=== PATIENT | male | born 1955 | race Caucasian/White ===

== ENCOUNTER 2020-02-20 14:32 | Outpatient (CLI) | payer OTHER, SELFPAY ==
[2020-02-20 16:09] LABS: Hematocrit 42.1 % (42.0-52.0); Hemoglobin 14.5 g/dL (14.0-18.0); Mean Corpuscular HGB Conc 34.4 g/dl (32-36); Mean Corpuscular Hemoglobin 30.8 pg (26-34); Mean Corpuscular Volume 89.4 fl (80-100); Mean Platelet Volume 10.3 fl (7.4-10.4); Platelet Count Result 253 k/mm3 (150-375); Red Blood Count 4.71 M/mm3 (4.6-6.20); Red Cell Distribution Width 13.7 % (11.5-14.5); White Blood Count 5.9 K/mm3 (4.5-10.0)
[2020-02-20 16:15] LABS: Hemoglobin A1C 5.7 % (<5.7)
[2020-02-20 16:18] LABS: Alanine Aminotransferase 39 U/L (4-50); Albumin Level 4.2 g/dL (3.5-5.1); Alkaline Phosphatase 74 U/L (38-126); Aspartate Amino Transferase 35 U/L (17-59); Bilirubin,Total 0.7 mg/dL (0.2-1.3); Blood Urea Nitrogen 14 mg/dL (9-20); Calcium 8.8 mg/dL (8.4-10.2); Carbon Dioxide 24 mmol/L (22-30); Chloride 103 mmol/L (98-107); Cholesterol 128 mg/dL (0-200); Estimated Glomerular Filt Rate > 60; Glucose 88 mg/dL (75-110); HDL Direct 43 mg/dL; Potassium 3.8 mmol/L (3.4-5.0); Sodium 134 mmol/L (137-145); Triglycerides 92 mg/dL (<150)
[2020-02-20 16:29] LABS: LDL Cholesterol Direct 64 mg/dL
[2020-02-20 16:35] LABS: Creatinine Urine 185.4 mg/dL
[2020-02-20 16:40] LABS: MALB Creatinine Ratio < 3.2 mg/g (0-30); Microalbumin Urine Random < 6.0 mg/L (0-16.7)
== END 2020-02-20 14:33 | disposition home or self-care (01) ==
LOC: ANHLAB 14:47
PROVIDERS: PCP Internal Medicine; Visit Provider Internal Medicine
DX: I10 Essential (primary) hypertension (principal); E78.5 Hyperlipidemia, unspecified; R73.01 Impaired fasting glucose
CPT/HCPCS: 36415; 80053; 80061; 82043; 83036; 84443; 85027

== ENCOUNTER 2020-09-14 09:23 | Outpatient (CLI) | payer OTHER, SELFPAY ==
--- NOTE | ~2020-09-14 | CT_ITS ---
EXAMINATION: CT lung screening EXAM DATE: 09/14/2020 09:45 INDICATION: Personal history of nicotine dependence. TECHNIQUE: Spiral low dose CT of the chest without contrast. Axial, coronal and sagittal images were reviewed. The dose-length product (DLP) for this examination was 128.55 mGy-cm. The exposure was t ailored according to patient size (auto mA exposure control), and iterative reconstruction (ASIR) was used as additional dose reduction technique. Comparison is made to prior examination from 09/05/2019. FINDINGS: Some chronic hyperinflation. Mild emphysema. Tracheobronchial tree is patent. There is no mediastinal, hilar or axillary lymphadenopathy. There are no pleural or pericardial effusions. There is no pneumothorax. Heart normal in size. There is mild coronary arterial calcification, a rterial sclerosis. Upper abdomen is unremarkable. No osteoblastic or osteolytic lesions identified. Patient has diffuse idiopathic skeletal hyperostosis (DISH). IMPRESSION: Lung-RADS category 1, negative (<1%chance of malignancy); recommend continued LDCT screen ing in 1 year. > Reviewed, dictated and finalized at location A. [employer] DEPARTMENT SUPERVISOR IMPRESSION: Lung-RADS category 1, negative (<1%chance of malignancy); recommend continued LDCT screening in 1 year. >
[2020-09-14 10:54] LABS: Alanine Aminotransferase 25 U/L (4-50); Albumin Level 3.9 g/dL (3.5-5.1); Alkaline Phosphatase 53 U/L (38-126); Anion Gap 6 mmol/L (8-16); Aspartate Amino Transferase 30 U/L (17-59); Bilirubin,Total 0.5 mg/dL (0.2-1.3); Blood Urea Nitrogen 13 mg/dL (9-20); Calcium 9.2 mg/dL (8.4-10.2); Carbon Dioxide 27 mmol/L (22-30); Chloride 106 mmol/L (98-107); Estimated Glomerular Filt Rate > 60; Glucose 109 mg/dL (75-110); Potassium 4.4 mmol/L (3.4-5.0); Sodium 139 mmol/L (137-145)
[2020-09-14 11:22] LABS: Prostate Specific Antigen 0.9 ng/mL (< OR = 4.0)
== END 2020-09-14 09:24 | disposition home or self-care (01) ==
PROVIDERS: PCP Internal Medicine; Visit Provider Internal Medicine
DX: Z12.2 Encounter for screening for malignant neoplasm of respiratory organs (principal); I10 Essential (primary) hypertension; Z87.891 Personal history of nicotine dependence; Z12.5 Encounter for screening for malignant neoplasm of prostate
CPT/HCPCS: 36415; 80053; 84153; G0103; G0297

== ENCOUNTER 2021-09-01 08:51 | Outpatient (CLI) | payer OTHER, SELFPAY ==
[2021-09-01 09:19] LABS: Basophils Absolute Auto 0.1 K/mm3 (0.0-0.1); Basophils Percent Auto 1.1 % (0.2-1.2); Eosinophils Absolute Auto 0.1 K/mm3 (0-0.3); Eosinophils Percent Auto 2.7 % (0-4.4); Hematocrit 48.7 % (42.0-52.0); Hemoglobin 16.5 g/dL (14.0-18.0); Immature Granulocyte Absolute 0.03 K/mm3 (0.00-0.031); Immature Granulocyte Percent A 0.6 % (0-0.5); Mean Corpuscular HGB Conc 33.9 g/dl (32-36); Mean Corpuscular Hemoglobin 31.4 pg (26-34); Mean Corpuscular Volume 92.8 fl (80-100); Mean Platelet Volume 9.7 fl (7.4-10.4); Monocytes Absolute Auto 0.6 K/mm3 (0.1-0.6); Monocytes Percent Auto 10.5 % (2.6-8.5); Neutrophils Absolute Auto 3.4 K/mm3 (1.3-6.7); Neutrophils Percent Auto 64.1 % (45.5-73.1); Platelet Count Result 199 k/mm3 (150-375); Red Blood Count 5.25 M/mm3 (4.6-6.20); Red Cell Distribution Width 12.7 % (11.5-14.5); White Blood Count 5.3 K/mm3 (4.5-10.0)
[2021-09-01 10:07] LABS: Microalbumin Urine Random 10.5 mg/L (0-16.7)
[2021-09-01 10:29] LABS: Creatinine Urine 417.5 mg/dL; MALB Creatinine Ratio 2.5 mg/g (0-30)
[2021-09-01 11:41] LABS: Hemoglobin A1C 5.4 % (<5.7)
[2021-09-01 12:05] LABS: Prostate Specific Antigen 0.9 ng/mL (< OR = 4.0)
[2021-09-01 13:06] LABS: Alanine Aminotransferase 27 U/L (4-50); Albumin Level 4.5 g/dL (3.5-5.1); Alkaline Phosphatase 70 U/L (38-126); Anion Gap 8 mmol/L (8-16); Aspartate Amino Transferase 32 U/L (17-59); Bilirubin,Total 0.5 mg/dL (0.2-1.3); Blood Urea Nitrogen 15 mg/dL (9-20); Carbon Dioxide 26 mmol/L (22-30); Chloride 108 mmol/L (98-107); Cholesterol 135 mg/dL (0-200); Estimated Glomerular Filt Rate > 60; Glucose 122 mg/dL (65-110); HDL Direct 44 mg/dL; Potassium 4.4 mmol/L (3.4-5.0); Sodium 142 mmol/L (137-145); Triglycerides 83 mg/dL (<150)
[2021-09-01 13:17] LABS: LDL Cholesterol Direct 75 mg/dL
== END 2021-09-01 08:52 | disposition home or self-care (01) ==
LOC: ANHLAB 08:53
PROVIDERS: PCP Internal Medicine; Visit Provider Internal Medicine
DX: Z12.5 Encounter for screening for malignant neoplasm of prostate (principal); J44.9 Chronic obstructive pulmonary disease, unspecified; E55.9 Vitamin D deficiency, unspecified; I10 Essential (primary) hypertension; E78.5 Hyperlipidemia, unspecified; R73.01 Impaired fasting glucose
CPT/HCPCS: 36415; 80053; 80061; 82043; 82306; 83036; 84153; 84443; 85025; G0103

== ENCOUNTER 2022-09-05 15:18 | Outpatient (CLI) | payer OTHER, SELFPAY ==
[2022-09-05 16:17] LABS: Alanine Aminotransferase 34 U/L (6-50); Albumin Level 4.6 g/dL (3.5-5.1); Alkaline Phosphatase 55 U/L (38-126); Anion Gap 13 mmol/L (8-16); Aspartate Amino Transferase 32 U/L (17-59); Bilirubin,Total 0.9 mg/dL (0.2-1.3); Blood Urea Nitrogen 12 mg/dL (9-20); Calcium 9.3 mg/dL (8.4-10.2); Carbon Dioxide 27 mmol/L (22-30); Chloride 97 mmol/L (98-107); Cholesterol 135 mg/dL (0-200); Estimated Glomerular Filt Rate > 60; Glucose 89 mg/dL (65-110); HDL Direct 41 mg/dL; Potassium 3.9 mmol/L (3.4-5.0); Sodium 137 mmol/L (137-145); Triglycerides 128 mg/dL (<150)
[2022-09-05 16:28] LABS: LDL Cholesterol Direct 66 mg/dL
[2022-09-05 16:40] LABS: Vitamin D 25 Hydroxy 26.8 ng/mL
[2022-09-05 16:48] LABS: Hemoglobin A1C 5.9 % (<5.7)
== END 2022-09-05 15:19 | disposition home or self-care (01) ==
LOC: ANHLAB 15:19
PROVIDERS: PCP Nurse Practitioner; Visit Provider Nurse Practitioner
DX: E78.5 Hyperlipidemia, unspecified (principal); Z79.899 Other long term (current) drug therapy; I10 Essential (primary) hypertension; E55.9 Vitamin D deficiency, unspecified; R73.01 Impaired fasting glucose
CPT/HCPCS: 36415; 80053; 80061; 82306; 83036; 84443

== ENCOUNTER 2023-02-03 11:00 | Outpatient (CLI) | payer MEDICARE, OTHER, SELFPAY ==
--- NOTE | 2023-02-03 11:14 | ECG_ITS ---
Measurements Intervals [place] Rate: 64 P: -8 CT: 201 QRS: 9 QRSD: 102 T: 29 QT: 369 QTc: 383 Interpretive Statements SINUS RHYTHM WITH SINUS ARRHYTHMIA BASELINE ARTIFACT NORMAL ECG COMPARED TO ECG 08/16/2019 07:52:39 SINUS ARRHYTHMIA NOW PRESENT Electronically Signed On 02-04-2023 14:54:21 CDT by Schuyler Alfonso M.D.
[2023-02-03 11:41] LABS: Anion Gap 8 mmol/L (8-16); Blood Urea Nitrogen 13 mg/dL (9-20); Carbon Dioxide 29 mmol/L (22-30); Chloride 98 mmol/L (98-107); Potassium 4.4 mmol/L (3.4-5.0); Sodium 135 mmol/L (137-145)
[2023-02-03 11:42] LABS: Calcium 9.2 mg/dL (8.4-10.2); Estimated Glomerular Filt Rate > 60; Glucose 99 mg/dL (65-110)
== END 2023-02-03 11:01 | disposition home or self-care (01) ==
LOC: ANHSURGERY 11:08
PROVIDERS: Anesthesiology; PCP Nurse Practitioner; Visit Provider Urology
DX: N47.1 Phimosis (principal); I10 Essential (primary) hypertension; Z51.81 Encounter for therapeutic drug level monitoring; Z01.818 Encounter for other preprocedural examination
CPT/HCPCS: 36415; 80048; 87086; 87088; 93005

== ENCOUNTER 2023-02-08 02:03 | Day surgery (SDC) | payer MEDICARE, OTHER, SELFPAY ==
[2023-02-02 08:37] VITALS: BMI 29.6
--- NOTE | 2023-02-02 09:00 | PC.NURSE ---
Report to the Outpatient Waiting Room, entrance under the green pavilion located off [facility], at time __1:30PM on date ___02/08/23____. Planned Procedure Time: ___3:30PM . Time changes happen often and if your time is changed the preop area will call you the afternoon before. - You and your visitor will be asked to self-screen and do not enter if you have any COVID symptoms. - Only one visitor is requested with a max of two and NO children visitors are allowed at this time. - The patient visitor may be requested to leave or wait in car when not with patient due to distancing restrictions. - A mask is optional within the hospital at this time. Patients may have clear liquids (water, carbonated beverages, clear teas, apple juice) until 3 hours prior to surgery with a maximum of 20 ounces. - No food from midnight until time of surgery Take the following medications with a SIP of water the morning of surgery: ___ADVAAIR DISKUS DO NOT STOP ANY OF YOUR OTHER PRESCRIPTION MEDICATIONS PRIOR TO SURGERY ?EXCEPT THE FOLLOWING Medications to discontinue per physician ___HOLD ASPIRIN 7 DAYS PRE-OP PER DR VALENCIA(PER PATIENT)____ Date to take last dose___02/01/23 Please no make-up, nail sami, hairspray, perfume, deodorant, or body powder the day of surgery. No jewelry (including any body piercings) or valuables the day of surgery, leave them at home. Please take a shower or bath the night before, or the morning of, surgery with an antibacterial soap. Wear comfortable, loose fitting clothing. Children are encouraged to wear pajamas. - Jewelry must be removed prior to entering the operating room. Rings and piercings that are not removed may be cut off. - The hospital will not accept responsibility for valuables. - Please leave all valuables, including medications, at home the day of surgery. If you are going home after surgery, a licensed lease purchase truck driver must drive you home. - NO public transportation without another adult if you receive anesthesia. - We recommend that an adult stay with you for 24 hours following discharge. - We also recommend that you do not drive, make important decision, drink alcoholic beverages, or take any drugs that were not prescribed by your health care provider for at least 24 hours after your discharge time. Follow any additional instructions given to you from your surgeon. If you or anyone in your household have experienced Covid symptoms in the past week, please notify your surgeon or the nurse liaison at the phone number below for possible testing. Telephone instructions given to _PATIENT and asked if any additional questions and then verbalized understanding. Patient advised to call surgeon office or pre surgery nurse liaison [phone] if any additional questions.
[2023-02-08] MEDS: ACETAMINOPHEN 500 MG TABLET 1000 MG PO (15:18)
[2023-02-08 15:45] VITALS: BP 132/82; PULSE 69; RESP 16; TEMP 36.8; O2SAT 98
[2023-02-08] MEDS: LACTATED RINGERS 1,000 ML 30 ML IV CONT (15:47)
--- NOTE | 2023-02-08 16:41 | WPDHPUPDATE1 ---
History and Physical Update Update Date/Time: 02/08/23 16:41 History and Physical has been reviewed, including an updated exam of the patient. There are NO changes in the patient's condition. Risks, benefits, and alternatives have been discussed and questions answered. Patient agrees to proceed with procedure.
--- NOTE | 2023-02-08 17:03 | WPDANESEPPF ---
Anes - Initial Pre Proc Eval Procedure: Operation Date: 02/08/23 15:30 Proposed Procedures p Circumcision - Antonio Qureshi MD Date/Time: 02/08/23 17:03 Surgeon: Antonio Qureshi MD Pre Op Diagnosis: phimosis Patient Data Age: 67 Gender: M Height: 1.75 m Weight: 97 kg Last Vital Signs Temp 36.8 C 02/08/23 15:45 Pulse 69 02/08/23 15:45 Resp 16 02/08/23 15:45 BP 132/82 02/08/23 15:45 Pulse Ox 98 02/08/23 15:45 O2 Del Method Room Air 02/08/23 15:45 Allergies Allergy/AdvReac Type Severity Reaction Status Date / Time Penicillins Allergy Unknown Unknown Verified 02/08/23 15:15 pneumonia vaccine Allergy Intermediate Rash Uncoded 02/08/23 15:15 Home Medications Medication Instructions Recorded Confirmed Type rosuvastatin 5 mg tablet (Crestor) 5 mg PO DAILY #90 tabs 08/22/22 02/02/23 Rx fluticasone 250 mcg-salmeterol 50 1 inh inhalation BID #180 ea 12/26/22 02/02/23 Rx mcg/dose blistr powdr for inhalation (Advair Diskus) aspirin 81 mg tablet,delayed 81 mg PO DAILY 02/02/23 02/02/23 History release hydrochlorothiazide 12.5 mg tablet 12.5 mg PO QAM 02/02/23 02/02/23 History lisinopril 20 mg tablet 20 mg PO QAM 02/02/23 02/02/23 History Patient hx anesthesia problems: none Family hx anesthesia problems: none Results Review: All pre-operative results and documents have been reviewed as part of the pre-operative evaluation. [facility] Past Medical History Medical History Benign hypertension with chronic kidney disease, stage II CKD stage G2/A2, GFR 60-89 and albumin creatinine ratio 30-299 mg/g COPD (chronic obstructive pulmonary disease) Dyslipidemia Social History Social History Smoking packs per day: 1.25 Smoking cigarettes per day: 25.0 Years smoked: 37 Smoking pack-years: 46.25 Smoking status: Former smoker Tobacco type: cigarettes Second hand tobacco smoke exposure: No Smoking end date: 04/29/18 Additional smoking assessment comments: 08/30/21- STOP CIGARS Alcohol intake: never Substance use: never Lack of Transportation: No Lack of Food: Never True Current Housing: I Have Housing Concerned About Future Housing: No Difficulty Paying Gas/Electric Bills: No Difficulty Paying for Meds: No Currently Unemployed: No Education: High School Diploma/GED Difficulty w/ Childcare or Family Care: No Living arrangements: with family Additional living arrangements comments: Spiritual care concerns: No Anes - Eval Final PreProcedure Day of Procedure 02/08/23 17:03 Patient weight: obese Heart: regular rate and rhythm Lungs: decreased breath sounds Airway: Mallampati scale class II Neurological: alert and oriented Last oral intake: >/= 8 hours ASA classification: III Emergent: no Anesthetic plan: proceed Anesthesia type and monitoring: general LMA and standard monitoring Results Review: All pre-operative results and documents have been reviewed as part of the pre-operative evaluation. Informed Consent: The patient's anesthetic plan and its attendant risks and benefits were discussed with the patient/family/POA. Questions were solicited and answers provided to the satisfaction of the patient/family/POA.
[2023-02-08] MEDS: ceFAZolin 2 GM/D5W 50 ML 2 GM/50 ML BAG IVPB (17:33)
[2023-02-08] MEDS: BUPivacaine HCL 0.5% PF 30 ML VIAL 10 ML INFILTRATE (17:55)
[2023-02-08] MEDS: NEOMYCIN/POLYMYXIN/BACITRACIN OINTMENT 15 GM TUBE 1 APPLIC TOPICAL (18:22)
--- NOTE | 2023-02-08 18:24 | W.PM.PROC2 ---
Procedure Note - Detailed Date of Procedure 02/08/23 Pre-op Diagnosis phimosis Post-op Diagnosis Same Procedure Performed Circumcision Surgeon Antonio Qureshi MD Anesthesia General Description of Procedure Informed consent is obtained. Patient taken the operating. He was given preoperative IV antibiotics. He was induced with Anesthesia. He was shaved prepped and draped in the normal sterile fashion. We placed a Prolene stay suture through the glans for mobilization. This point we then incised the inner and outer preputial skin removing all the fibrotic skin. Preputial skin was tented specimen. We then irrigated copiously hemostasis was achieved. We then reapproximated the deep dermal layer with 3-0 Vicryl sutures. We then performed quadrant sutures of 3-0 chromic, followed by horizontal mattress closure of 4-0 chromic. There was excellent cosmetic result. Antibiotic ointment was placed over the incision and a compressive dressing was placed. Patient tolerated procedure well and was taken to recovery room Pathology Yes Complications No immediate complications Condition Stable Disposition PACU
[2023-02-08 18:26] VITALS: BP 135/80; PULSE 72; RESP 17; TEMP 36.7; O2SAT 100
[2023-02-08 18:40] VITALS: BP 139/79; PULSE 70; RESP 12; O2SAT 100
[2023-02-08 18:55] VITALS: BP 123/73; PULSE 70; RESP 18; O2SAT 98
[2023-02-08 19:15] VITALS: BP 128/60; PULSE 59
[2023-02-08 19:45] VITALS: BP 127/72; PULSE 58
== END 2023-02-08 19:56 | disposition home or self-care (01) ==
PROVIDERS: PCP Nurse Practitioner; Visit Provider Urology
PROC: (CPT 54161; principal; 2023-02-08 15:30)
DX: N47.1 Phimosis (principal); N48.0 Leukoplakia of penis; I12.9 Hypertensive chronic kidney disease with stage 1 through stage 4 chronic kidney disease, or unspecified chronic kidney disease; N18.2 Chronic kidney disease, stage 2 (mild); J44.9 Chronic obstructive pulmonary disease, unspecified; E78.5 Hyperlipidemia, unspecified; Z87.891 Personal history of nicotine dependence; Z79.51 Long term (current) use of inhaled steroids; E66.9 Obesity, unspecified; Z68.31 Body mass index [BMI] 31.0-31.9, adult
CPT/HCPCS: 54161; 88304; A9270; J0690; J1100; J2250; J2405; J2704; J3010; J7120

== ENCOUNTER 2023-08-16 14:37 | Outpatient (CLI) | payer MEDICARE, OTHER, SELFPAY ==
[2023-08-16 15:52] LABS: Alanine Aminotransferase 34 U/L (6-50); Albumin Level 4.6 g/dL (3.5-5.1); Alkaline Phosphatase 67 U/L (38-126); Anion Gap 8 mmol/L (8-16); Aspartate Amino Transferase 30 U/L (17-59); Bilirubin,Total 0.7 mg/dL (0.2-1.3); Blood Urea Nitrogen 14 mg/dL (9-20); Calcium 9.6 mg/dL (8.4-10.2); Carbon Dioxide 26 mmol/L (22-30); Chloride 99 mmol/L (98-107); Cholesterol 129 mg/dL (0-200); Estimated Glomerular Filt Rate > 60; Glucose 95 mg/dL (65-110); HDL Direct 44 mg/dL; Potassium 3.7 mmol/L (3.4-5.0); Sodium 133 mmol/L (137-145); Triglycerides 83 mg/dL (<150)
[2023-08-16 16:03] LABS: LDL Cholesterol Direct 69 mg/dL
[2023-08-16 16:22] LABS: Prostate Specific Antigen 0.7 ng/mL (< OR = 4.0)
[2023-08-16 20:48] LABS: Hemoglobin A1C 5.6 % (<5.7)
== END 2023-08-16 14:38 | disposition home or self-care (01) ==
LOC: ANHLAB 14:40
PROVIDERS: PCP Nurse Practitioner; Visit Provider Nurse Practitioner
DX: R73.01 Impaired fasting glucose (principal); E78.5 Hyperlipidemia, unspecified; Z12.5 Encounter for screening for malignant neoplasm of prostate
CPT/HCPCS: 36415; 80053; 80061; 83036; 84153; G0103

== ENCOUNTER 2024-02-21 14:49 | Outpatient (CLI) | payer MEDICARE, OTHER, SELFPAY ==
[2024-02-21 15:45] LABS: Alanine Aminotransferase 26 U/L (6-50); Albumin Level 4.5 g/dL (3.5-5.1); Alkaline Phosphatase 67 U/L (38-126); Anion Gap 10 mmol/L (4-12); Aspartate Amino Transferase 23 U/L (17-59); Bilirubin,Total 0.7 mg/dL (0.2-1.3); Blood Urea Nitrogen 14 mg/dL (9-20); Calcium 9.5 mg/dL (8.4-10.2); Carbon Dioxide 24 mmol/L (22-30); Chloride 102 mmol/L (98-107); Cholesterol 129 mg/dL (0-200); Estimated Glomerular Filt Rate > 60; Glucose 83 mg/dL (65-110); HDL Direct 40 mg/dL; Potassium 3.6 mmol/L (3.4-5.0); Sodium 136 mmol/L (137-145); Triglycerides 118 mg/dL (<150)
[2024-02-21 15:56] LABS: LDL Cholesterol Direct 83 mg/dL
[2024-02-21 18:25] LABS: Vitamin D 25 Hydroxy 25.3 ng/mL
== END 2024-02-21 14:50 | disposition home or self-care (01) ==
LOC: ANHLAB 14:52
PROVIDERS: PCP Nurse Practitioner; Visit Provider Nurse Practitioner
DX: E78.5 Hyperlipidemia, unspecified (principal); E55.9 Vitamin D deficiency, unspecified
CPT/HCPCS: 36415; 80053; 80061; 82306

== ENCOUNTER 2024-08-06 00:28 | Day surgery (SDC) | payer MEDICARE, OTHER, SELFPAY ==
[2024-07-16 14:23] VITALS: BMI 33.5
[2024-08-06 06:23] VITALS: BP 149/64; PULSE 79; RESP 16; TEMP 35.6; O2SAT 98; BMI 34.6
[2024-08-06] MEDS: LACTATED RINGERS 1,000 ML 150 ML IV CONT (06:36)
--- NOTE | 2024-08-06 07:17 | PM.HPGS ---
History of Present Illness History of Present Illness Consent: Risks, benefits, and alternatives have been discussed and questions answered. Patient agrees to proceed with procedure. Chief complaint: Personal history colon polyps Narrative: Vicente Villanueva is a 68 year old male with colon polyp 5 years ago Review of Systems Review of Systems: All systems reviewed & are unremarkable except as noted in HPI and below PMFSH Past Medical History Medical History (Updated 08/06/24 @ 07:18 by Stan Hunt MD) Benign hypertension with chronic kidney disease, stage II CKD stage G2/A2, GFR 60-89 and albumin creatinine ratio 30-299 mg/g Colon polyp COPD (chronic obstructive pulmonary disease) Dyslipidemia Social History Social History Smoking packs per day: 4 Smoking cigarettes per day: 80.0 Years smoked: 50 Smoking pack-years: 200.00 Smoking status: Former smoker Tobacco type: cigarettes and cigars Second hand tobacco smoke exposure: No Smoking end date: 04/29/18 Additional smoking assessment comments: 08/30/21- STOP CIGARS Alcohol intake: never Substance use: never Lack of Transportation: No Lack of Food: Never True Current Housing: I Have Housing Concerned About Future Housing: No Difficulty Paying Gas/Electric Bills: No Difficulty Paying for Meds: No Currently Unemployed: No Education: High School Diploma/GED Difficulty w/ Childcare or Family Care: No Living arrangements: with family Additional living arrangements comments: Spiritual care concerns: No Meds Home Medications and Allergies Home Medications Medication Instructions Recorded Confirmed Type aspirin 81 mg tablet,delayed 81 mg PO DAILY 02/02/23 08/06/24 History release hydrochlorothiazide 12.5 mg tablet 12.5 mg PO QAM #90 tabs 02/26/24 08/06/24 Rx lisinopril 20 mg tablet 20 mg PO QAM #90 tabs 02/26/24 08/06/24 Rx rosuvastatin 5 mg tablet (Crestor) 5 mg PO DAILY #90 tabs 02/26/24 08/06/24 Rx fluticasone 250 mcg-salmeterol 50 1 inh inhalation BID #180 ea 07/19/24 08/06/24 Rx mcg/dose blistr powdr for inhalation (Advair Diskus) Allergies Allergy/AdvReac Type Severity Reaction Status Date / Time Penicillins Allergy Unknown Unknown Verified 08/06/24 06:22 pneumonia vaccine Allergy Intermediate Rash Uncoded 08/06/24 06:22 Vital Signs Vital Signs - 24 hr 08/06/24 06:23 Temperature 96.0 F L Pulse Rate 79 Respiratory Rate 16 Blood Pressure 149/64 H Pulse Oximetry 98 Oxygen Delivery Room Air Exam Const: General: comfortable and no acute distress HENMT: Face/Nose/Sinus: Normal nares present Eyes: General: appearance normal, both eyes and all related structures Neck: Neck: no JVD Resp: Auscultation: clear to auscultation bilaterally Cardio: Rate: regular rate Rhythm: regular rhythm GI: Inspection: non-distended GI Palp: Yes Soft to palpation Skin: General skin exam: normal color Neuro: General: gait normal Speech: normal speech Extrem: General: normal to inspection Psych: Mental Status: mental status grossly normal Assessment and Plan Assessment and plan (1) Colon polyp: Code(s): K63.5 - Polyp of colon Status: Acute Assessment and Plan: colonoscopy
--- NOTE | 2024-08-06 07:21 | WPDANESEPPF ---
Anes - Initial Pre Proc Eval Procedure: Operation Date: 08/06/24 07:30 Proposed Procedures p Colonoscopy - Stan Hunt MD Date/Time: 08/06/24 07:21 Surgeon: Stan Hunt MD Pre Op Diagnosis: Personal history colon polyps Patient Data Age: 68 Gender: M Height: 1.73 m Weight: 103.2 kg Last Vital Signs Temp 96.0 F L 08/06/24 06:23 Pulse 79 08/06/24 06:23 Resp 16 08/06/24 06:23 BP 149/64 H 08/06/24 06:23 Pulse Ox 98 08/06/24 06:23 O2 Del Method Room Air 08/06/24 06:23 Allergies Allergy/AdvReac Type Severity Reaction Status Date / Time Penicillins Allergy Unknown Unknown Verified 08/06/24 06:22 pneumonia vaccine Allergy Intermediate Rash Uncoded 08/06/24 06:22 Home Medications Medication Instructions Recorded Confirmed Type aspirin 81 mg tablet,delayed 81 mg PO DAILY 02/02/23 08/06/24 History release hydrochlorothiazide 12.5 mg tablet 12.5 mg PO QAM #90 tabs 02/26/24 08/06/24 Rx lisinopril 20 mg tablet 20 mg PO QAM #90 tabs 02/26/24 08/06/24 Rx rosuvastatin 5 mg tablet (Crestor) 5 mg PO DAILY #90 tabs 02/26/24 08/06/24 Rx fluticasone 250 mcg-salmeterol 50 1 inh inhalation BID #180 ea 07/19/24 08/06/24 Rx mcg/dose blistr powdr for inhalation (Advair Diskus) Patient hx anesthesia problems: none Family hx anesthesia problems: none Results Review: All pre-operative results and documents have been reviewed as part of the pre-operative evaluation. ON LICENSE OF [facility] Past Medical History Medical History (Updated 08/06/24 @ 07:18 by Stan Hunt MD) Benign hypertension with chronic kidney disease, stage II CKD stage G2/A2, GFR 60-89 and albumin creatinine ratio 30-299 mg/g Colon polyp COPD (chronic obstructive pulmonary disease) Dyslipidemia Social History Social History Smoking packs per day: 4 Smoking cigarettes per day: 80.0 Years smoked: 50 Smoking pack-years: 200.00 Smoking status: Former smoker Tobacco type: cigarettes and cigars Second hand tobacco smoke exposure: No Smoking end date: 04/29/18 Additional smoking assessment comments: 08/30/21- STOP CIGARS Alcohol intake: never Substance use: never Lack of Transportation: No Lack of Food: Never True Current Housing: I Have Housing Concerned About Future Housing: No Difficulty Paying Gas/Electric Bills: No Difficulty Paying for Meds: No Currently Unemployed: No Education: High School Diploma/GED Difficulty w/ Childcare or Family Care: No Living arrangements: with family Additional living arrangements comments: Spiritual care concerns: No Anes - Eval Final PreProcedure Day of Procedure 08/06/24 07:21 Patient weight: obese Heart: regular rate and rhythm Lungs: clear to auscultation Airway: Mallampati scale class II Neurological: alert and oriented Last oral intake: >/= 8 hours ASA classification: III Emergent: no Anesthetic plan: proceed Anesthesia type and monitoring: general GIVS and standard monitoring Results Review: All pre-operative results and documents have been reviewed as part of the pre-operative evaluation. Informed Consent: The patient's anesthetic plan and its attendant risks and benefits were discussed with the patient/family/POA. Questions were solicited and answers provided to the satisfaction of the patient/family/POA.
[2024-08-06 07:42] VITALS: BP 92/58; PULSE 76; RESP 20; O2SAT 96
[2024-08-06 07:52] VITALS: BP 97/60; PULSE 69; RESP 17; O2SAT 96
[2024-08-06 08:02] VITALS: BP 116/74; PULSE 71; RESP 21; O2SAT 97
== END 2024-08-06 08:12 | disposition home or self-care (01) ==
PROVIDERS: PCP Nurse Practitioner; Referring Provider Internal Medicine Gastroenterology; Visit Provider Internal Medicine Gastroenterology
PROC: 0DJD8ZZ Inspection of Lower Intestinal Tract, Via Natural or Artificial Opening Endoscopic (ICD-10-PCS; CPT 45378; principal; 2024-08-06 07:30)
DX: Z12.11 Encounter for screening for malignant neoplasm of colon (principal); K63.5 Polyp of colon; K64.8 Other hemorrhoids; K64.4 Residual hemorrhoidal skin tags; K57.30 Diverticulosis of large intestine without perforation or abscess without bleeding; I12.9 Hypertensive chronic kidney disease with stage 1 through stage 4 chronic kidney disease, or unspecified chronic kidney disease; N18.2 Chronic kidney disease, stage 2 (mild); J44.9 Chronic obstructive pulmonary disease, unspecified; E78.5 Hyperlipidemia, unspecified; E66.9 Obesity, unspecified; Z68.34 Body mass index [BMI] 34.0-34.9, adult; Z79.82 Long term (current) use of aspirin; Z79.51 Long term (current) use of inhaled steroids; Z87.891 Personal history of nicotine dependence
CPT/HCPCS: 45380; 88305; J2003; J2704; J7120

== ENCOUNTER 2025-03-05 12:12 | Outpatient (CLI) | payer MEDICARE, OTHER, SELFPAY ==
--- OUTSIDE RECORDS SUMMARY | 2025-03-05 12:27 | XMS_ITS | Clinical Summary ---
Author Organization [facility] Address [address] [place] [id number] Care Team Providers Care Manager Military Name Role Phone Molina Montalvo MD Primary Care Provider Unavailab le Social History Tobacco Use Types Packs/Day Years Used Date Smoking Tobacco: Never Assessed Sex and Gender Information Value Date Recorded Sex Assigned at Not on file Legal Sex Male 6:32 PM CDT Gender Identity Not on file Sexual Orientation Not on file Plan of Treatment Health Maintenance Due Date Last Done Comments Colorectal Cancer Screening Colonoscopy (10 Years) 1957 Hepatitis C 1975 DTaP, Tdap and Td Vaccines ( 1 - Tdap) 1976 Pneumococcal Vaccine: 50+ Ye ars (1 of 1 - PCV) 2007 Zoster Vaccines (1 of 2) 2007 COVID-19 Vaccine ( - 2023-2 5 season) 2024 RSV Immunization or 60+ Years (1 - 1-dose 75+ series) 2032 Meningococcal B Vaccine Aged Out No l onger eligible based on patient's age to complete this topic Meningococcal Vaccine Aged Out No bartolome nallely eligible based on patient's age to complete this topic RSV Immunizations Under 20 Months Aged Out No longer eligible based on patient's age to complete this topic Care Teams Manager Military Relationship Specialty Start Date End Date Molina Montalvo MD PCP - General 04/09/12
[2025-03-05 12:40] LABS: Alanine Aminotransferase 31 U/L (6-50); Albumin Level 4.4 g/dL (3.5-5.1); Alkaline Phosphatase 77 U/L (38-126); Anion Gap 9 mmol/L (4-12); Aspartate Amino Transferase 23 U/L (17-59); Bilirubin,Total 0.5 mg/dL (0.2-1.3); Blood Urea Nitrogen 12 mg/dL (9-20); Calcium 9.5 mg/dL (8.4-10.2); Carbon Dioxide 25 mmol/L (22-30); Chloride 103 mmol/L (98-107); Cholesterol 150 mg/dL (0-200); Estimated Glomerular Filt Rate > 60; Glucose 152 mg/dL (65-110); HDL Direct 46 mg/dL; Potassium 3.8 mmol/L (3.4-5.0); Sodium 137 mmol/L (137-145); Triglycerides 131 mg/dL (<150)
[2025-03-05 12:51] LABS: LDL Cholesterol Direct 75 mg/dL
[2025-03-05 12:52] LABS: Hemoglobin A1C 5.9 % (<5.7)
[2025-03-05 13:16] LABS: Vitamin D 25 Hydroxy 58.5 ng/mL
== END 2025-03-05 12:13 | disposition home or self-care (01) ==
PROVIDERS: PCP Nurse Practitioner; Visit Provider Nurse Practitioner
DX: R73.01 Impaired fasting glucose (principal); E78.5 Hyperlipidemia, unspecified; E55.9 Vitamin D deficiency, unspecified
CPT/HCPCS: 36415; 80053; 80061; 82306; 83036

== ENCOUNTER 2025-05-23 09:22 | Outpatient (CLI) | payer MEDICARE, OTHER, SELFPAY ==
--- OUTSIDE RECORDS SUMMARY | 2025-05-23 09:27 | XMS_ITS | Clinical Summary ---
Author Organization [facility] Address [address] [place] [id number] Care Team Providers Care Supervisor Drilling And Shooting Name Role Phone Molina Montalvo MD Primary [...] age to complete this topic Care Teams Supervisor Drilling And Shooting Relationship Specialty Start Date End Date Molina Montalvo MD PCP - General 04/09/12
[2025-05-23 11:02] LABS: Prostate Specific Antigen 0.7 ng/mL (< OR = 4.0)
[2025-05-27 14:08] LABS: Free Testosterone (Direct) 4.8 pg/mL (6.6-18.1)
== END 2025-05-23 09:23 | disposition home or self-care (01) ==
LOC: ANHLAB 09:25
PROVIDERS: PCP Nurse Practitioner; Visit Provider Nurse Practitioner Family
DX: E29.1 Testicular hypofunction (principal); Z12.5 Encounter for screening for malignant neoplasm of prostate
CPT/HCPCS: 36415; 84153; 84402; G0103

== ENCOUNTER 2025-07-18 08:52 | Outpatient (CLI) | payer MEDICARE, OTHER, SELFPAY ==
[2025-07-18 09:32] LABS: Hematocrit 46.3 % (42.0-52.0); Hemoglobin 15.9 g/dL (14.0-18.0)
[2025-07-19 07:09] LABS: FSH 9.3 mIU/mL (1.5-12.4); LH 5.9 mIU/mL (1.7-8.6)
[2025-07-23 19:08] LABS: Estradiol, Sensitive 15.2 pg/mL (8.0-35.0)
[2025-07-25 11:09] LABS: Free Testosterone (Direct) 3.3 pg/mL (6.6-18.1)
== END 2025-07-18 08:53 | disposition home or self-care (01) ==
LOC: ANHLAB 08:53
PROVIDERS: PCP Nurse Practitioner; Visit Provider Urology
DX: E29.1 Testicular hypofunction (principal)
CPT/HCPCS: 36415; 82670; 83001; 83002; 84146; 84402; 84403; 85014; 85018

== ENCOUNTER 2025-09-08 16:47 | Outpatient (CLI) | payer MEDICARE, OTHER, SELFPAY ==
--- OUTSIDE RECORDS SUMMARY | 2025-09-08 16:50 | XMS_ITS | Clinical Summary ---
Author Organization [facility] Address [address] [place] [id number] Care Team Providers Care Check Inspector Name Role Phone Molina Montalvo MD Primary [...] Vaccines (1 of 2) 2007 COVID-19 Vaccine (1 - 2024-2 6 season) 2025 Influenza Adult (#1) 2025 RSV Immunization or 60+ Years (1 - 1-dose 75+ series) 2032 Hepatitis A Vaccines Aged Out No long er eligible based on patient's age to complete this topic Meningococcal B Vaccine Aged Out No l onger eligible based on patient's age to complete this topic Meningococcal Vaccine Aged Out No bartolome nallely eligible based on patient's age to complete this topic RSV Immunizations Under 20 Months Aged Out No longer eligible based on patient's age to complete this topic Care Teams Check Inspector Relationship Specialty Start Date End Date Molina Montalvo MD PCP - General 04/09/12
[2025-09-08 17:24] LABS: Alanine Aminotransferase 32 U/L (6-50); Albumin Level 4.4 g/dL (3.5-5.1); Alkaline Phosphatase 70 U/L (38-126); Anion Gap 10 mmol/L (4-12); Aspartate Amino Transferase 29 U/L (17-59); Bilirubin,Total 0.8 mg/dL (0.2-1.3); Blood Urea Nitrogen 13 mg/dL (9-20); Calcium 9.6 mg/dL (8.4-10.2); Carbon Dioxide 22 mmol/L (22-30); Chloride 103 mmol/L (98-107); Cholesterol 133 mg/dL (0-200); Estimated Glomerular Filt Rate > 60; Glucose 93 mg/dL (65-110); HDL Direct 39 mg/dL; Potassium 3.6 mmol/L (3.4-5.0); Sodium 135 mmol/L (137-145); Total Protein 7.4 g/dL (6.3-8.2); Triglycerides 152 mg/dL (<150)
[2025-09-08 17:53] LABS: Prostate Specific Antigen 0.9 ng/mL (< OR = 4.0)
== END 2025-09-08 16:48 | disposition home or self-care (01) ==
PROVIDERS: PCP Nurse Practitioner; Visit Provider Nurse Practitioner
DX: E78.5 Hyperlipidemia, unspecified (principal); Z12.5 Encounter for screening for malignant neoplasm of prostate
CPT/HCPCS: 36415; 80053; 80061; 84153; G0103